=== PATIENT | male | born 1985 | race Caucasian/White ===

== ENCOUNTER 2022-10-14 16:24 | Emergency (ER) | payer BC, MEDICAID ==
[2022-10-14 16:35] VITALS: BP 147/102; PULSE 92
[2022-10-14] MEDS: Take Home: Ketorolac 10 MG Tab, 4 Tab Pack PO ONE (17:09)
== END 2022-10-14 17:12 | disposition home or self-care (01) ==
LOC: CC.ED 16:24
DX: S83.92XA Sprain of unspecified site of left knee, initial encounter (principal); J45.909 Unspecified asthma, uncomplicated; Z88.5 Allergy status to narcotic agent; X50.1XXA Overexertion from prolonged static or awkward postures, initial encounter
CPT/HCPCS: 73562-LT; 99283; A9270-GY

== ENCOUNTER 2023-02-20 15:11 | Emergency (ER) | payer BC, MEDICAID ==
[2023-02-20] MEDS ORDERED: Ketorolac 60 MG/2 ML SDV IM ONE (15:17)
[2023-02-20] MEDS ORDERED: methylPREDNISolone Sodium Succinate 40 MG/1 ML SDV IM ONE (15:18)
[2023-02-20 15:43] VITALS: BP 138/85; PULSE 88
== END 2023-02-20 16:05 | disposition home or self-care (01) ==
LOC: CC.ED 15:11
DX: M10.9 Gout, unspecified (principal); Z88.5 Allergy status to narcotic agent
CPT/HCPCS: 96372; 99283; 99283-25; J1885; J2920

== ENCOUNTER 2023-03-13 11:35 | Emergency (ER) | payer MEDICAID ==
[2023-03-13] MEDS ORDERED: Ketorolac 60 MG/2 ML SDV IM ONE (12:01)
[2023-03-13 12:28] LABS: BASOPHILS ABSOLUTE AUTO 0.04 10^3/uL (0.00-0.50); BASOPHILS PERCENT AUTO 0.2 % (0-1); EOSINOPHILS ABSOLUTE AUTO 0.07 10^3/uL (0.00-1.50); EOSINOPHILS PERCENT AUTO 0.4 % (0-6); HEMATOCRIT 49.1 % (42.0-52.0); HEMOGLOBIN 16.8 g/dL (14.0-18.0); IMMATURE GRAN ABSOLUTE AUTO 0.07 10^3/uL (0.00-0.49); IMMATURE GRAN PERCENT AUTO 0.4 % (0.0-4.9); LYMPHOCYTES ABSOLUTE AUTO 3.13 10^3/uL (0.60-5.00); LYMPHOCYTES PERCENT AUTO 18.1 % (24-44); MEAN CORPUSCULAR HEMOGLOBIN 32.4 pg (27.0-32.0); MEAN CORPUSCULAR HGB CONC 34.2 g/dL (32.0-36.0); MEAN CORPUSCULAR VOLUME 94.6 fL (83.0-97.0); MONOCYTES ABSOLUTE AUTO 1.33 10^3/uL (0.00-1.50); MONOCYTES PERCENT AUTO 7.7 % (0-10); NEUTROPHILS ABSOLUTE AUTO 12.66 x10^3/uL (1.80-8.00); NEUTROPHILS PERCENT AUTO 73.2 % (41-71); PLATELET COUNT,PLT 310 10^3/uL (150-400); RED BLOOD CELL COUNT 5.19 x10^6/uL (4.50-6.00); WHITE BLOOD CELL COUNT,WBC 17.3 10^3/uL (4.0-11.0)
[2023-03-13 12:41] LABS: ALBUMIN 3.9 g/dL (3.4-5.0); BILIRUBIN TOTAL 0.8 mg/dL (0.0-1.0); C-REACTIVE PROTEIN 4.21 mg/dL (<=0.50); CALCIUM 9.5 mg/dL (8.4-10.1); EST CRCL DRUG DOSING (CG) 107.72 mL/min; PROTEIN TOTAL,TP 8.3 g/dL (6.4-8.2); URIC ACID 4.6 mg/dL (3.5-7.2)
[2023-03-13] MEDS ORDERED: Take Home: Acetaminophen/HYDROcodone 325-5 MG, 2 Tab Pack PO ONE (13:17)
[2023-03-13] MEDS ORDERED: Apixaban 5 MG Tab PO ONE (13:18)
[2023-03-13 14:03] VITALS: BP 121/86; PULSE 87
== END 2023-03-13 13:50 | disposition home or self-care (01) ==
LOC: CC.ED 11:35
DX: M10.9 Gout, unspecified (principal); M79.671 Pain in right foot; M79.661 Pain in right lower leg; R79.1 Abnormal coagulation profile; J45.909 Unspecified asthma, uncomplicated; Z88.5 Allergy status to narcotic agent
CPT/HCPCS: 36415; 73610-RT; 73630-RT; 80053; 84550; 85025; 85379; 86140; 96372; 99283; A9270-GY; J1885